=== PATIENT | female | born 1945 | race African-American/Black ===

== ENCOUNTER → 2021-08-09 | Outpatient (CLI) | payer MEDICARE | LOC: RAD 13:40 | DX: M25.561 Pain in right knee (principal); R09.89 Other specified symptoms and signs involving the circulatory and respiratory systems | CPT/HCPCS: 71046 ==

== ENCOUNTER → 2022-01-21 | Outpatient (CLI) | payer MEDICARE | LOC: RAD 09:18 | DX: R60.9 Edema, unspecified (principal) | CPT/HCPCS: 93971 ==